=== PATIENT | female | born 1990 | race African-American/Black ===

== ENCOUNTER 2017-08-13 11:35 | Emergency (ER) | payer OTHER, SELFPAY | END 2017-08-13 12:50 | disposition home or self-care (01) | LOC: NAV ERS 11:35 | DX: S00.81XA Abrasion of other part of head, initial encounter (principal); F17.210 Nicotine dependence, cigarettes, uncomplicated; Y08.09XA Assault by strike by other specified type of sport equipment, initial encounter | CPT/HCPCS: 99283 ==